=== PATIENT | male | born 1935 | race Caucasian/White ===

== ENCOUNTER 2016-11-04 10:14 | Emergency (ER) | payer OTHER | END 2016-11-04 16:11 | disposition home or self-care (01) | LOC: ER 10:14 | DX: K62.5 Hemorrhage of anus and rectum (principal); I10 Essential (primary) hypertension; E78.5 Hyperlipidemia, unspecified; F17.210 Nicotine dependence, cigarettes, uncomplicated; Z90.5 Acquired absence of kidney; Z79.899 Other long term (current) drug therapy | CPT/HCPCS: 36415; Q9963 ==

== ENCOUNTER 2016-11-05 14:09 | Observation (INO) | payer OTHER | END 2016-11-07 11:42 | disposition home or self-care (01) | LOC: SDCH 14:09 → MED 14:11 → SDCH 11-06 13:00 → MED 11-07 11:42 | PROVIDERS: ADMIT Surgery | DX: C18.7 Malignant neoplasm of sigmoid colon (principal); K62.5 Hemorrhage of anus and rectum; J44.9 Chronic obstructive pulmonary disease, unspecified; F17.210 Nicotine dependence, cigarettes, uncomplicated; Z86.73 Personal history of transient ischemic attack (TIA), and cerebral infarction without residual deficits; Z85.46 Personal history of malignant neoplasm of prostate; Z85.528 Personal history of other malignant neoplasm of kidney; Z79.899 Other long term (current) drug therapy | CPT/HCPCS: 84153; G0378; J1610; J2704 ==